=== PATIENT | female | born 1965 | race Two or more races ===

== ENCOUNTER 2021-07-30 22:49 | Emergency (ER) | payer MEDICAID, OTHER ==
[~2021-07-30] VITALS: Ht 149.9 cm; Wt 59.0 kg
[2021-07-31 04:28] VITALS: BP 142/64
[2021-07-31] MEDS ORDERED: ACETAMINOPHEN 325 MG TAB PO ONE (04:30)
== END 2021-07-31 04:40 | disposition home or self-care (01) ==
LOC: ER 22:49
DX: S09.90XA Unspecified injury of head, initial encounter (principal); Z88.0 Allergy status to penicillin; Z88.8 Allergy status to other drugs, medicaments and biological substances; W22.8XXA Striking against or struck by other objects, initial encounter; Y93.89 Activity, other specified; Y92.89 Other specified places as the place of occurrence of the external cause; Y99.8 Other external cause status
CPT/HCPCS: 70450